=== PATIENT | male | born 1950 | race Caucasian/White ===

== ENCOUNTER → 2016-09-07 | Outpatient (CLI) | payer MEDICARE, OTHER | LOC: RAD 10:40 | DX: M54.2 Cervicalgia (principal); M54.5 Low back pain; M54.6 Pain in thoracic spine; M47.892 Other spondylosis, cervical region; M85.88 Other specified disorders of bone density and structure, other site; M48.02 Spinal stenosis, cervical region | CPT/HCPCS: 72050; 72072; 72110 ==

== ENCOUNTER → 2021-03-02 | Outpatient (CLI) | payer MEDICARE, OTHER | LOC: KOH-I 10:00 | DX: M25.551 Pain in right hip (principal) | CPT/HCPCS: 73502; 73552 ==